=== PATIENT | male | born 1935 | race Caucasian/White ===

== ENCOUNTER 2016-06-09 19:21 | Inpatient (IN) | payer BC ==
--- NOTE | ~2016-06-09 | DS ---
Discharge Summary [facility] [address] [place]. [address] NAME: MAIA HERNANDEZ : 37 STATUS : ADM IN [facility]#: [id number] AGE: 81 ADM/REG DATE : 06/09/16 MR#: [id number] REPORT SERV DATE: 06/14/16 DICTATED BY: JUAN ALCOCER DATE: 06/13/16 REPORT STATUS : Draft TRANSCRIBED BY: MODL DATE: 06/13/16 ADMISSION DATE: 06/09/2016 DISCHARGE DATE: REASON FOR ADMISSION: This is a 81-year-old male who presented with progressive weight loss, increasing confusion, and weakness. The patient apparently had stopped using his diabetes medication about three months ago and then began to lose weight as well. Since February 2016, he has been completely noncompliant with diabetes medication or monitoring and has lost about 50 pounds gradually over that period of time. He describes decreased appetite, but no nausea or vomiting and has had intermittent diarrhea chronically and not daily. The patient's family was concerned about his increasing confusion and weakness over the last six days and in a recurrent falls prior to admission. DISCHARGE DIAGNOSES: 1. Uncontrolled diabetes with A1c of 13.4%. 2. Urinary tract infection. 3. Recurrent falls and unsteady gait. 4. History of traumatic brain injury. 5. Late effects of cerebrovascular accident. 6. Hypothyroid, new diagnosis, started on Synthroid. 7. Status post acute kidney injury. HOSPITAL COURSE: 1. Confusion and weakness. The confusion has cleared since he has been here at the hospital. He did appear to have a light UTI and was started initially on IV Rocephin and has been converted to oral amoxicillin. His urine culture would grow out 100,000 of strep group B. His white blood cell count on admission was actually within normal limits at 7.1. I suspect that a lot of his confusion was possibly due to his uncontrolled diabetes. His weakness and unsteady gait has persisted. He was having falls at home. PT evaluation has recommended inpatient rehab. The patient is being evaluated for [facility]. 2. Uncontrolled diabetes. The patient has been found to have an A1c of 13.4%. Here at the hospital, we have started him on a new diabetic regimen placing him on Levemir 25 units q.h.s. and NovoLog 8 units subcu before meals t.i.d. and sliding scale insulin level 2 as well as metformin 500 mg p.o. b.i.d., this has worked well for the patient. Over the last 24 hours, his blood sugars have been ranging from 105 to 217. I plan to continue this regimen moving forward. DISCHARGE MEDICATIONS: 1. Januvia 100 mg p.o. daily. 2. Amoxicillin 500 mg p.o. b.i.d. x3 more days. 3. Glucophage 500 mg p.o. b.i.d. 4. Levemir 25 units subcu at bedtime. 5. MiraLAX powder one packet p.o. daily. 6. NovoLog 8 units before meals t.i.d. 7. Sliding scale insulin level 2. Discharge Summary [address] [address] NAME: MAIA HERNANDEZ : 37 STATUS : ADM IN [facility]#: [id number] AGE: 81 ADM/REG DATE : 06/09/16 MR#: [id number] REPORT SERV DATE: 06/14/16 DICTATED BY: JUAN ALCOCER DATE: 06/13/16 REPORT STATUS : Draft TRANSCRIBED BY: JORGITO DATE: 06/13/16 8. Lisinopril 5 mg p.o. daily. 9. Synthroid 25 mcg p.o. daily. DISCHARGE CONDITION: Stable. PLAN: The patient being evaluated for [facility] for rehab. Insurance has been submitted information to insurance and that is pending. Hopefully, approval will be reached tomorrow and the patient can discharge to [facility]. All discharge paperwork has been signed and discharge orders has been filled out. The patient should be able to discharge in the morning if approval is received. FREDDY/URBANOL Juan Alcocer APN / [id number] CC: Geo Gonzalez M.D.
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
--- NOTE | ~2016-06-09 | DS ---
Discharge Summary [place] [address] [place]. [address] NAME: MAIA LIANG : 39 STATUS : DIS IN PAT#: [id number] AGE: 81 ADM/REG DATE : 06/09/16 MR#: [id number] REPORT SERV DATE: 06/16/16 DICTATED BY: KATE ERAZO DATE: 06/16/16 REPORT STATUS : Draft TRANSCRIBED BY: JORGITO DATE: 06/16/16 ADMISSION DATE: 06/09/2016 DISCHARGE DATE: 06/16/2016 REASON FOR ADMISSION: Increasing confusion and weakness. HISTORY OF PRESENT ILLNESS: Please refer to Dr. Glasgow's history and physical dated 06/09/2016 for complete details regarding the patient's admission. In brief, the patient was admitted to the Hospitalist Service for management of his uncontrolled diabetes. HOSPITAL COURSE: From admission to 06/14/2016, please refer to Juan Linares's discharge dictation and then please refer to my discharge dictation also dated 06/14/2016. The patient was initially planned to be discharged to [facility] several days ago; however, his insurance had denied acute inpatient rehab and we had to re-choice him, which had delayed discharge for several days. He had been re-choiced to go to [facility] and it took some more time to get insurance approval and then to have a bed availability. I assumed care of this patient on 06/14/2016. He has been stable since then. His sugars have been well controlled on the current regimen. He will be discharged today in a stable condition. DISCHARGE DIAGNOSES: Metabolic encephalopathy secondary to urinary tract infection, now resolved; uncontrolled diabetes with A1c of 13.4%, on insulin and oral agents; history of recurrent falls; morbid obesity; late affects of cerebrovascular accident; acute kidney injury, now resolved; and obstructive sleep apnea, on CPAP. DISCHARGE MEDICATIONS: Include aspirin 81 mg once a day, alogliptin 25 mg daily, amoxicillin 500 mg twice a day for two more days, Synthroid 25 mcg before breakfast, lisinopril 5 mg daily, metformin 500 mg twice a day, and Levemir 25 units at bedtime. This is Dr. Kate Erazo spending over 30 minutes discharge planning and coordination of care of Mr. Liang. COLIN/JORGITO Kate Erazo MD / [id number] CC: Kate Erazo MD
--- NOTE | ~2016-06-09 | DS ---
Discharge Summary [place] [address] [place]. [address] NAME: MAIA HERNANDEZ : 39 STATUS : ADM IN [facility]#: [id number] AGE: 81 ADM/REG DATE : 06/09/16 MR#: [id number] REPORT SERV DATE: 06/14/16 DICTATED BY: KATE EARZO DATE: 06/14/16 REPORT STATUS : Draft TRANSCRIBED BY: MODL DATE: 06/14/16 ADMISSION DATE: 06/09/2016 DISCHARGE DATE: 06/14/2016 REASON FOR ADMISSION: Uncontrolled diabetes, metabolic encephalopathy, and weakness. HISTORY OF PRESENT ILLNESS: Please refer Dr. Glasgow's history and physical dated 06/10 for complete details regarding the patient's admission. In brief, the patient was admitted to the Hospitalist Service for uncontrolled and untreated diabetes, recurrent falls, and UTI with encephalopathy. HOSPITAL COURSE: Please refer to Mr. Hunter Linares's discharge summary for complete hospital course. In brief, the patient's metabolic encephalopathy had resolved, that appears he had a urinary tract infection secondary to group B Strep that was initially started on IV Rocephin and switched to oral amoxicillin. The patient apparently had run out of his diabetes medicines. He was noted to have an A1c of 13.4%. His CBGs have been decently controlled on a new regimen of Levemir 25 units at bedtime and NovoLog 8 units subcu before meals three times a day. I assumed care of this patient with Mr. Hunter Linares on the . He has had multiple recurrent falls and Physical Therapy had evaluated him and recommended rehab. We are currently awaiting insurance approval for the patient to be connected to [facility]. Once we have insurance approval, which we are hoping will be today, he will be discharged in a stable condition. DISCHARGE DIAGNOSES: Metabolic encephalopathy secondary to urinary tract infection, now resolved, uncontrolled diabetes with an A1c of 13.4%, on an insulin, history of recurrent falls, morbid obesity, late effects of cerebrovascular accident status post acute kidney injury, now resolved, and obstructive sleep apnea, on continuous positive airway pressure. DISCHARGE MEDICATIONS: Januvia 100 mg daily, amoxicillin 500 mg twice a day for three more days, Glucophage 500 mg twice a day, Levemir 25 units at bedtime, MiraLAX daily, NovoLog 8 units before meals, lisinopril 5 mg daily, Synthroid 25 mcg daily. Spending over 30 minutes in discharge planning and coordination of care of Mr. Valerio COLIN/JORGITO Kate Erazo MD / [id number] CC: Candi Das M.D.
[~2016-06-09 19:21] MED LIST: BIAXIN5 PO; LEVOTHYROXIN200 MCG PO; SYNTHROID200 MCG PO; ZOCOR40 PO
[2016-06-09 19:23] LABS: BASOPHILS 0.3 %; BASOPHILS ABSOLUTE 0.02 10/3/uL (0.0-0.16); EOSINOPHILS 1.7 %; EOSINOPHILS ABSOLUTE 0.12 10/3/uL (0.0-0.53); IMMATURE GRANULOCYTES 0.1 %; IMMATURE GRANULOCYTES ABSOLUTE 0.01 10/3/uL (0.0-0.11); LYMPHOCYTES 31.3 %; LYMPHOCYTES ABSOLUTE 2.23 10/3/uL (0.67-4.30); MEAN CORPUS HGB CONC 33.7 g/dL (32.0-36.0); MEAN CORPUSCULAR HEMOGLOB 30.1 pg (26.0-34.0); MEAN CORPUSCULAR VOLUME 89.2 fL (80-100); MEAN PLATELET VOLUME 11.8 fL (9.2-13.0); MONOCYTES 8.8 %; MONOCYTES ABSOLUTE 0.63 10/3/uL (0.21-1.20); NEUTROPHILS 57.8 %; NEUTROPHILS ABSOLUTE 4.11 10/3/uL (2.02-8.40); PLATELET COUNT 204 10/3/uL (150-400); RED CELL COUNT 4.65 10/6/uL (4.7-6.1); WHITE BLOOD CELLS 7.1 10/3/uL (4.5-10.5)
[2016-06-09 19:25] LABS: HEMATOCRIT 41.5 % (40.0-51.0); MANUAL DIFF NO %
[2016-06-09 19:32] LABS: PROTIME (NOT ORD) 12.9 SEC (12.0-14.5)
[2016-06-09 19:40] LABS: ALBUMIN 3.5 G/DL (3.5-5.0); ALKALINE PHOSPHATASE 92 U/L (45-117); BUN (BLOOD UREA NITROGEN) 19 MG/DL (6-23); CHEST PAIN PROFILE TAT 0 Hrs 23 Mins; CHLORIDE, SERUM 97 MMOL/L (96-112); CO2 (CARBON DIOXIDE) 26 MMOL/L (24-34); CREATININE 1.27 MG/DL (0.70-1.30); GFR AFRICAN AMERICAN 62 ML/MIN (>=60); GFR NON AFRICAN AMERICAN 53 ML/MIN (>=60); GLUCOSE, SERUM 342 MG/DL (60-99); SGOT(AST) 14 U/L (5-40); SGPT(ALT) 16 U/L (5-65); SODIUM, SERUM 135 MMOL/L (135-148); TOTAL BILIRUBIN 0.4 MG/DL (0-1.2); TOTAL PROTEIN 7.5 G/DL (6.0-8.5); TROPONIN I <0.02 NG/ML (<0.05)
[2016-06-09 19:44] LABS: CALCIUM, SERUM 8.3 MG/DL (8.5-10.4); DIRECT BILIRUBIN < 0.1 MG/DL (0.0-0.4); INDIRECT BILIRUBIN(NOT ORDER) 0.3 MG/DL (0.1-0.9); POTASSIUM, SERUM 3.9 MMOL/L (3.5-5.3)
[2016-06-09 20:02] LABS: ASCORBIC ACID (UR NOT ORDER) NEG (NEG); BILIRUBIN, URINE NEGATIVE (NEG); ER URINALYSIS TAT 0 Hrs 12 Mins; KETONE, URINE 20 MG/DL (NEG); LEUKOCYTE ESTERASE(NOT OR LARGE (NEG); NITRITE (URINE) NEG (NEG); WBC (NOT ORDERED) (RFLEX) 12 (0-5)
[2016-06-10 04:26] LABS: BASOPHILS 0.3 %; BASOPHILS ABSOLUTE 0.02 10/3/uL (0.0-0.16); EOSINOPHILS 2.5 %; EOSINOPHILS ABSOLUTE 0.16 10/3/uL (0.0-0.53); HEMATOCRIT 38.1 % (40.0-51.0); HEMOGLOBIN 13.4 g/dL (13.6-17.8); IMMATURE GRANULOCYTES 0.2 %; IMMATURE GRANULOCYTES ABSOLUTE 0.01 10/3/uL (0.0-0.11); LYMPHOCYTES 40.3 %; LYMPHOCYTES ABSOLUTE 2.54 10/3/uL (0.67-4.30); MEAN CORPUS HGB CONC 35.2 g/dL (32.0-36.0); MEAN CORPUSCULAR HEMOGLOB 30.9 pg (26.0-34.0); MEAN PLATELET VOLUME 11.8 fL (9.2-13.0); MONOCYTES 9.8 %; MONOCYTES ABSOLUTE 0.62 10/3/uL (0.21-1.20); NEUTROPHILS 46.9 %; NEUTROPHILS ABSOLUTE 2.95 10/3/uL (2.02-8.40); PLATELET COUNT 185 10/3/uL (150-400); RBC DISTRIBUTION WIDTH 12.8 % (12.0-16.0); RED CELL COUNT 4.33 10/6/uL (4.7-6.1); WHITE BLOOD CELLS 6.3 10/3/uL (4.5-10.5)
[2016-06-10 04:29] LABS: MANUAL DIFF NO %
[2016-06-10 04:50] LABS: A/G RATIO 0.7 (0.7-1.9); ALBUMIN 2.9 G/DL (3.5-5.0); CALCIUM, SERUM 8.4 MG/DL (8.5-10.4); CHLORIDE, SERUM 103 MMOL/L (96-112); CO2 (CARBON DIOXIDE) 29 MMOL/L (24-34); CREATININE 0.95 MG/DL (0.70-1.30); GFR AFRICAN AMERICAN 88 ML/MIN (>=60); GFR NON AFRICAN AMERICAN 76 ML/MIN (>=60); GLOBULIN 3.9 G/DL (2.5-4.1); POTASSIUM, SERUM 4.3 MMOL/L (3.5-5.3); SGOT(AST) 11 U/L (5-40); SGPT(ALT) 16 U/L (5-65); SODIUM, SERUM 139 MMOL/L (135-148); TOTAL BILIRUBIN 0.4 MG/DL (0-1.2); TOTAL PROTEIN 6.8 G/DL (6.0-8.5)
[2016-06-10 04:51] LABS: ALKALINE PHOSPHATASE 80 U/L (45-117); BUN (BLOOD UREA NITROGEN) 13 MG/DL (6-23); GLUCOSE, SERUM 180 MG/DL (60-99)
[2016-06-10 04:53] LABS: PARTIAL THROMBO TIME 23.2 SEC (22.5-37.2); PROTIME (NOT ORD) 13.3 SEC (12.0-14.5)
[2016-06-11 04:10] LABS: BUN (BLOOD UREA NITROGEN) 13 MG/DL (6-23); CALCIUM, SERUM 8.7 MG/DL (8.5-10.4); CHLORIDE, SERUM 101 MMOL/L (96-112); CO2 (CARBON DIOXIDE) 28 MMOL/L (24-34); CREATININE 0.91 MG/DL (0.70-1.30); FREE T4 0.79 NG/DL (0.76-1.46); GFR AFRICAN AMERICAN 93 ML/MIN (>=60); GFR NON AFRICAN AMERICAN 80 ML/MIN (>=60); GLUCOSE, SERUM 207 MG/DL (60-99); SODIUM, SERUM 139 MMOL/L (135-148)
[2016-06-11 04:15] LABS: POTASSIUM, SERUM 4.6 MMOL/L (3.5-5.3)
[2016-06-12 04:55] LABS: BUN (BLOOD UREA NITROGEN) 16 MG/DL (6-23); CALCIUM, SERUM 8.7 MG/DL (8.5-10.4); CHLORIDE, SERUM 100 MMOL/L (96-112); CO2 (CARBON DIOXIDE) 28 MMOL/L (24-34); CREATININE 0.84 MG/DL (0.70-1.30); GFR AFRICAN AMERICAN 97 ML/MIN (>=60); GFR NON AFRICAN AMERICAN 83 ML/MIN (>=60); GLUCOSE, SERUM 218 MG/DL (60-99); POTASSIUM, SERUM 4.5 MMOL/L (3.5-5.3); SODIUM, SERUM 138 MMOL/L (135-148)
== END 2016-06-16 13:28 | DRG 637 ==
LOC: ER 19:21 → CDU1 22:54 → CDU2 23:27 → 7NO 06-13 18:02
PROVIDERS: Emergency Medicine; Internal Medicine; Nurse Practitioner Gerontology
DX: E11.65 Type 2 diabetes mellitus with hyperglycemia (principal); G93.41 Metabolic encephalopathy; N17.9 Acute kidney failure, unspecified; N39.0 Urinary tract infection, site not specified; E66.01 Morbid (severe) obesity due to excess calories; Z79.4 Long term (current) use of insulin; Z91.81 History of falling; Z86.73 Personal history of transient ischemic attack (TIA), and cerebral infarction without residual deficits; G47.33 Obstructive sleep apnea (adult) (pediatric); Z68.38 Body mass index [BMI] 38.0-38.9, adult
CPT/HCPCS: 70450; 71010; 72125; 73560-50; 73560-LT; 80048; 80053; 80076; 81001; 82150; 82962; 83036; 83690; 83735; 84134; 84439; 84443; 84484; 85025; 85610; 85730; 87086; 93005; 97110-GP; 97116-GP; 97162-GP; 97165-GO; 99285; A9270-GY; G0378; G8978-CK-GP; G8979-CJ-GP

== ENCOUNTER 2016-08-12 10:29 | Emergency (ER) | payer BC ==
[2016-08-12 12:30] LABS: BASOPHILS 0.2 %; BASOPHILS ABSOLUTE 0.02 10/3/uL (0.0-0.16); EOSINOPHILS 1.3 %; EOSINOPHILS ABSOLUTE 0.14 10/3/uL (0.0-0.53); HEMATOCRIT 36.6 % (40.0-51.0); HEMOGLOBIN 12.9 g/dL (13.6-17.8); IMMATURE GRANULOCYTES 0.3 %; IMMATURE GRANULOCYTES ABSOLUTE 0.03 10/3/uL (0.0-0.11); LYMPHOCYTES 21.9 %; MEAN CORPUS HGB CONC 35.2 g/dL (32.0-36.0); MEAN CORPUSCULAR HEMOGLOB 30.4 pg (26.0-34.0); MEAN CORPUSCULAR VOLUME 86.3 fL (80-100); MEAN PLATELET VOLUME 10.5 fL (9.2-13.0); MONOCYTES 8.7 %; MONOCYTES ABSOLUTE 0.95 10/3/uL (0.21-1.20); NEUTROPHILS 67.6 %; NEUTROPHILS ABSOLUTE 7.44 10/3/uL (2.02-8.40); PLATELET COUNT 220 10/3/uL (150-400); RBC DISTRIBUTION WIDTH 12.9 % (12.0-16.0); RED CELL COUNT 4.24 10/6/uL (4.7-6.1)
[2016-08-12 12:31] LABS: ER CBC TAT 0 Hrs 07 Mins; MANUAL DIFF NO %
[2016-08-12 12:35] LABS: ASCORBIC ACID (UR NOT ORDER) NEG (NEG); BILIRUBIN, URINE NEGATIVE (NEG); ER URINALYSIS TAT 0 Hrs 11 Mins; KETONE, URINE NEGATIVE (NEG); LEUKOCYTE ESTERASE(NOT OR SMALL (NEG); NITRITE (URINE) NEG (NEG); WBC (NOT ORDERED) (RFLEX) 2 (0-5)
[2016-08-12 12:48] LABS: A/G RATIO 0.9 (0.7-1.9); ALBUMIN 3.2 G/DL (3.5-5.0); BUN (BLOOD UREA NITROGEN) 13 MG/DL (6-23); CALCIUM, SERUM 8.5 MG/DL (8.5-10.4); CHLORIDE, SERUM 97 MMOL/L (96-112); CO2 (CARBON DIOXIDE) 29 MMOL/L (24-34); CREATININE 0.89 MG/DL (0.70-1.30); GFR AFRICAN AMERICAN 94 ML/MIN (>=60); GFR NON AFRICAN AMERICAN 81 ML/MIN (>=60); GLOBULIN 3.6 G/DL (2.5-4.1); GLUCOSE, SERUM 123 MG/DL (60-99); SGOT(AST) 16 U/L (5-40); SGPT(ALT) 13 U/L (5-65); TOTAL BILIRUBIN 0.8 MG/DL (0-1.2); TOTAL PROTEIN 6.8 G/DL (6.0-8.5)
[2016-08-12 12:49] LABS: ALKALINE PHOSPHATASE 63 U/L (45-117); SODIUM, SERUM 130 MMOL/L (135-148)
== END 2016-08-12 16:20 | disposition home or self-care (01) ==
LOC: ER 10:29
PROVIDERS: Physician Assistant
DX: M62.81 Muscle weakness (generalized) (principal); E87.1 Hypo-osmolality and hyponatremia; R30.0 Dysuria; E10.9 Type 1 diabetes mellitus without complications
CPT/HCPCS: 73552-LT; 73610-LT; 80053; 81001; 83690; 85025; 87077; 87086; 87186; 93005; 99285

== ENCOUNTER 2016-08-23 20:43 | Inpatient (IN) | payer BC ==
--- NOTE | ~2016-08-23 | DS ---
Discharge Summary [facility] [address] [facility] [place]. [address] NAME: MAIA HERNANDEZ : 39 STATUS : DIS IN PAT#: [id number] AGE: 81 ADM/REG DATE : 08/24/16 MR#: [id number] REPORT SERV DATE: 10/17/16 DICTATED BY: Bindu ANNA DATE: 10/15/16 REPORT STATUS : Draft TRANSCRIBED BY: MODL DATE: 10/15/16 ADMISSION DATE: 08/24/2016 DISCHARGE DATE: 08/30/2016 DISCHARGE DIAGNOSES: 1. 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 Lab work pending as of this dictation. 2. 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 3. Hypothyroidism, most recently TSH 7.290, on Synthroid replacement therapy. 4. Diabetes type 2, most recent hemoglobin A1c was 6.9. 5. Vitamin B12 deficiency. 6. Baseline chronic dementia. 7. History of traumatic brain injury. 8. Obstructive sleep apnea, on CPAP therapy. 9. Constipation. DISCHARGE MEDICATIONS: Level 2 NovoLog sliding scale a.c. and at bedtime, Synthroid 100 mcg p.o. daily, Levemir 10 units twice a day, Tylenol 650 mg every four hours p.r.n., metformin 500 mg twice a day, hypoglycemia protocol, Zofran 4 mg every four hours p.r.n. for nausea, Januvia 100 mg daily, MiraLAX 17 g p.o. daily, Dulcolax suppository one [place] p.r.n. for no bowel movement in 24 hours. HISTORY OF PRESENT ILLNESS: This is a 81-year-old gentleman, who presented with weakness and inability to walk. Please see initial H and P of Dr. Clarence Garcia. The patient was admitted to the Hospitalist Service for further evaluation and treatment. CONSULTANTS DURING THIS ADMISSION: Included Neurology, Dr. Marley, and Nephrology, Dr. Shaikh. PROCEDURES AND IMAGING DURING THIS ADMISSION: Included a lumbar puncture ordered by Neurology showing mild amount of protein. HOSPITAL COURSE: The patient was seen by neurologist, Dr. Denver Marley, who had some concern for Guillain-[place] syndrome given the increased CSF protein and ascending weakness. She initiated IVIG therapy, supportive care, and physical therapy and occupational therapy. The patient did have a mild decrease in his sodium, which started to improve also with hydration. His TSH was noted to be elevated to 8.630, so his Synthroid dosage was increased with instructions to recheck his TSH in four to six weeks, and he continued on his IVIG therapy to complete a 5-day course. The patient was doing reasonably well, but did have a rather precipitous drop in his sodium again that happened on 08/28/2016 with dropping from 130 to 122. He actually spent one day in the care of critical care, Dr. Chelsea De La Garza, on that day with consultation then to [facility] who initiated medication with Samsca for resolution of his sodium, and this did increase his sodium slowly to 125 and then to 130. He completed his IVIG therapy. He was seen and evaluated for rehab at [facility] and was felt safe for discharge there on 08/30/2016 with the above medication regimen. Please note, greater than 30 minutes was spent on this dictation for medication teaching, Discharge Summary [address] [address] NAME: MAIA HERNANDEZ : 39 STATUS : DIS IN PAT#: [id number] AGE: 81 ADM/REG DATE : 08/24/16 MR#: [id number] REPORT SERV DATE: 10/17/16 DICTATED BY: Bindu ANNA DATE: 10/15/16 REPORT STATUS : Draft TRANSCRIBED BY: JORGITO DATE: 10/15/16 family meeting, and followup planning. Collaborative physician is Dr. Thiago Anna. [facility]/JORGITO Sanchez Blank, GUS Bindu Anna M.D. / [id number] CC: Geo Thomason D.O.
--- NOTE | ~2016-08-23 | CN ---
Consultation Report [facility] [address] [place]. [address] NAME: MAIA HERNANDEZ : 37 STATUS : ADM IN PAT#: [id number] AGE: 81 ADM/REG DATE : 08/24/16 MR#: [id number] REPORT SERV DATE: 08/24/16 DICTATED BY: DATE: REPORT STATUS : Draft TRANSCRIBED BY: MODL DATE: 08/24/16 NEUROLOGY CONSULTATION DATE OF CONSULTATION: 08/24/2016 REASON FOR CONSULT: Gait abnormality. HISTORY OF PRESENT ILLNESS: This is a 81-year-old male, previously admitted on May 2016, secondary to encephalopathy, attributed to urinary tract infection, the patient's mental status subsequently improved, and patient was discharged to rehab. However, the patient while at rehab was noted to have progressive weakness. With the patient's family reports the patient initially was noted to have left lower extremity pain and weakness and left knee discomfort for which the patient's orthopedist evaluated the patient and found no etiology for the patient's pain and discomfort. The patient subsequently was noted to have worsening gait. With the patient noted to have now bilateral lower extremity weakness, have difficulty standing up, and difficulty transferring. With the patient's reports weakness in bilateral upper extremity as well. As the patient was noted to have increasing difficulties with pushing himself off the bed. The patient's otherwise denies any dysarthria, denies any aphasia, and denies any worsening mental status. However, the patient was noted to have reportedly difficulty with appetite with significant weight loss over the past several months. In addition, the patient was also noted to have significant diarrhea over the past several months, but no difficulties with bladder control. The patient denies any numbness and denies any tingling sensation. No similar events in the past. The patient does have recent adjustment of thyroid medication, otherwise no other medication adjustment was reported. The patient does have outpatient MRI of the C-spine, T- spine, as well as L-spine ordered by Orthopedics, with reportedly no significant abnormality noted. No other significant trauma was reported. 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 PAST MEDICAL HISTORY: With the patient has the past medical history significant for previous uncontrolled insulin dependent diabetes type 2, hypothyroidism, history of traumatic brain injury with intracerebral hemorrhage, as well as history of stroke in the past, obstructive sleep apnea, on CPAP, as well as benign prosthetic hypertrophy, the patient was noted to have baseline disorientation which the patient's reports has been stable ever since the patient's previous traumatic brain injury. ALLERGIES: THE PATIENT WAS NOTED TO HAVE NO KNOWN DRUG ALLERGIES. HOME MEDICATIONS: Levothyroxine, Levemir, metformin, as well as Januvia. SOCIAL HISTORY: Denies tobacco, alcohol, or recreational drug usage. FAMILY HISTORY: Significant for Alzheimer's dementia and cancer. Consultation Report [place] [id number] [facility] [place]. [address] NAME: MAIA HERNANDEZ : 37 STATUS : ADM IN [facility]#: [id number] AGE: 81 ADM/REG DATE : 08/24/16 MR#: [id number] REPORT SERV DATE: 08/24/16 DICTATED BY: DATE: REPORT STATUS : Draft TRANSCRIBED BY: MODYolie DATE: 08/24/16 REVIEW OF SYSTEMS: Again, review of systems negative except for those mentioned in the HPI. PHYSICAL EXAMINATION: VITAL SIGNS: The patient overnight was noted to have vital signs with T-max of 98.9, heart rate of 80 to 99, respirations of 16 to 18, and blood pressure of 123 to 157/74 to 83. GENERAL: The patient is well-developed, well-nourished, in no acute distress. CARDIOVASCULAR: Regular rate and rhythm. No carotid bruits were otherwise auscultated. PULMONARY: Clear to auscultation bilaterally. NEUROLOGIC: Generally, the patient is alert, oriented to the person, knows that he is in the hospital, but disoriented regarding city, and the patient was noted disoriented regarding the year, as well as month, which according to patient's was consistent with the patient's baseline mental status. The patient is able to follow simple and two-step commands and was noted to have mild dysarthria, no significant aphasia was noted. The patient was noted to have difficulty with registration and recall. Cranial nerves 2 through 12. Pupils equal, round, and reactive to light. Horizontal eye movement was noted to be intact. No nystagmus was noted. Intact blink to threat response was noted. He was noted to have symmetrical facial expression. Midline tongue. Normal palatal movement. Mild decreased hearing in bilateral ears. Reports symmetrical facial sensation. The patient demonstrated 5/5 bilateral upper extremity strength with normal muscle, bulk, and tone. No tremor was noted. The patient demonstrated 2/5 bilateral lower extremity strength. With the patient have difficulties raising bilateral lower extremity against gravity. The patient was noted to be areflexic in bilateral upper and lower extremity at the time of evaluation. Plantar reflex was unable to be obtained. Normal [id number]-ec-tzks examination without ataxia. Gait was not evaluated, secondary to significant weakness. Symmetrical sensation in bilateral upper extremities. Diminished sensation in bilateral lower extremities, roughly mentioned area. With the patient's sensation seems to be better in the right lower extremity compared to the left. The patient demonstrated no significant resting tremors. No asterixis or myoclonus was noted at the time of evaluation. LABORATORY DATA: Demonstrated white blood cell count of 8.9, hemoglobin of 12.9, hematocrit of 36.0, platelet count of 255. Chemistry panel, the patient was noted to have sodium 127, potassium 4.4, chloride of 92, bicarb 28, BUN of 14, creatinine 0.80, glucose of 106, calcium of 8.6, magnesium 1.5. Folate of 19.8, vitamin B12 of 166. Serum TSH of 7.44, free T4 1.43. Hemoglobin A1c of 6.9. Urinalysis demonstrated negative leukocyte esterase, negative for nitrite. With the patient noted to have CT scan of the brain demonstrating no acute process. IMPRESSION: Progressive weakness in bilateral lower extremity with the patient noted to have 2/5 bilateral lower extremity weakness and areflexic. We will opt low outpatient MRI scan for review. We will request lumbar puncture by Radiology, as the patient was noted to be areflexic. We will also obtain laboratory study and have respiratory evaluation for NIF, as well as vital capacity q.shift. 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 [place] [address] NAME: MAIA HERNANDEZ : 37 STATUS : ADM IN [facility]#: [id number] AGE: 81 ADM/REG DATE : 08/24/16 MR#: [id number] REPORT SERV DATE: 08/24/16 DICTATED BY: DATE: REPORT STATUS : Draft TRANSCRIBED BY: MODL DATE: 08/24/16 have recently improved control of diabetes, versus possible multifactorial etiology. We are recommending PT/OT for evaluation. RECOMMENDATIONS: 1. We will follow outpatient MRI studies. 2. Radiology for lumbar puncture. 3. CSF for protein, glucose, cell count with differential, as well as HSV, PCR, cryptococcal antigen, Gram stain, bacterial culture, myelin basic protein and oligoclonal band. 4. Ammonia level with morning labs. 5. Vitamin B12 supplementation. 6. PT/OT. 7. Respiratory on NIF and vital capacity check q.shift. [facility]/MODL Denver Marley MD / [id number] CC: MD Juan Jose Rankin D.O.
--- NOTE | ~2016-08-23 | HP ---
History And Physical [place] [address] [place]. [address] NAME: MAIA LIANG : 37 STATUS : ADM IN [facility]#: [id number] AGE: 81 ADM/REG DATE : 08/24/16 MR#: [id number] REPORT SERV DATE: 08/24/16 DICTATED BY: MARY LIRA DATE: 08/24/16 REPORT STATUS : Draft TRANSCRIBED BY: MODL DATE: 08/24/16 DATE OF ADMISSION: 08/24/2016 POINT OF ENTRY: [facility] Emergency Department Primary care physician is Dr. Juan Jose Hyatt. CHIEF COMPLAINT: Weakness, cannot walk. HISTORY OF PRESENT ILLNESS: Mr. Liang is a 81-year-old gentleman with history of poorly controlled insulin-dependent diabetes mellitus type 2, hypothyroidism, history of traumatic brain injury with resulting intracerebral hemorrhage in the 1970s, as well as BPH, who presents to the emergency department today with reports of progressive worsening weakness and now inability to walk. The patient was admitted to the Hospitalist Service in May 2016 with encephalopathy, uncontrolled diabetes, as well as underlying urinary tract infection. The patient was discharged to [facility] [place] after his stay here. states that despite stay at [place], he returned not much stronger than when he was admitted to the hospital. At that time, he required a walker for ambulation. Since then, he has progressively gotten weaker and weaker. He is now unable to lift his legs up without assistance. His ability to use a walker is now severely compromised as he is now starting to have upper extremity weakness as well. reports that he has undergone some initial evaluation for his lower extremity weakness including seeing his orthopedic surgeon for reports of knee pain as well as seeing Dr. Tam Schultz of Orthopedic Spine Surgery and underwent reported MRIs of the lower back that were reportedly unremarkable. The patient is actually scheduled to have an EMG tomorrow for further evaluation of lower extremity weakness complaints. REVIEW OF SYSTEMS: They otherwise deny any fevers, night sweats, chills, chest pain, palpitations, shortness of breath, abdominal pain, nausea, vomiting, constipation, melena, hematochezia, or hematemesis. states that he has had an extensive weight loss due to poor oral intake and poor appetite as well as troubles with chronic diarrhea. Comprehensive system otherwise negative unless listed in history present illness. IMAGING: Initial evaluation in the emergency department, CT scan of the brain that shows old postsurgical changes as well as encephalomalacia, otherwise no acute intracranial abnormality. The labs otherwise unremarkable except for a vitamin B12 of 166. The patient was subsequently admitted to the Hospitalist Service for further evaluation and management. PREVIOUS MEDICAL HISTORY: 1. Uncontrolled insulin-dependent diabetes mellitus type 2. History And Physical [address] [address] NAME: MAIA LIANG : 37 STATUS : ADM IN [facility]#: [id number] AGE: 81 ADM/REG DATE : 08/24/16 MR#: [id number] REPORT SERV DATE: 08/24/16 DICTATED BY: MARY LIRA DATE: 08/24/16 REPORT STATUS : Draft TRANSCRIBED BY: JORGITO DATE: 08/24/16 2. Hypothyroidism. 3. History of traumatic brain injury with intracerebral hemorrhage in 1970. 4. Obstructive sleep apnea, on CPAP therapy. 5. BPH. 6. History of prior cerebrovascular accident. SURGICAL HISTORY: 1. Left temporal craniotomy. 2. Bilateral total knee. 3. Cholecystectomy. 4. TURP. 5. Umbilical hernia repair. 6. Left arm surgery. ALLERGIES: NO KNOWN DRUG ALLERGIES. HOME MEDICATIONS: 1. Levemir 25 units q.h.s. 2. Levothyroxine 75 mcg daily. 3. Metformin 500 mg b.i.d. 4. Januvia 100 mg q.a.m. SOCIAL HISTORY: Denies any tobacco, alcohol, or illicits. FAMILY MEDICAL HISTORY: Mother with Alzheimer's dementia. Father cancer, type unknown. Siblings are otherwise healthy. LABS AND IMAGIN. White count is 8.9, hemoglobin is 12.9, hematocrit is 36.0, platelet count is 255. 2. Sodium is 127, potassium 4.5, chloride 92, carbon dioxide 28, BUN 14, creatinine 0.80, glucose is 106, calcium is 8.6, protein is 6.6, albumin is 3.1, bilirubin is 0.5, ALT is 13, AST 12, alkaline phosphatase is 67. 3. CPK is 55. 4. TSH 8.6, free T4 of 1.41. 5. Vitamin B12 level is 166. 6. Folate level is 19.8. 7. CT scan of the brain shows stable postsurgical changes from left temporal craniotomy with stable underlying moderate large area of left temporal lobe and inferior adjacent parietal lobe encephalomalacia, stable moderate sized old CVA superior left frontal lobe, stable underlying moderate diffuse cerebral involutional changes. PHYSICAL EXAMINATION: VITAL SIGNS: Temperature is 98.2 degrees Fahrenheit, pulse is 90, respirations 10, saturating 98% on room air, blood pressure is 121/78. GENERAL: The patient is awake, alert, in no acute distress. Resting comfortably in bed. He is a well-developed, well-nourished, elderly male. at bedside. HEENT: Atraumatic and normocephalic. Moist mucous membranes. Pupils equal, round, and History And Physical [address] [address] NAME: MAIA LIANG : 37 STATUS : ADM IN [facility]#: [id number] AGE: 81 ADM/REG DATE : 08/24/16 MR#: [id number] REPORT SERV DATE: 08/24/16 DICTATED BY: MARY LIRA DATE: 08/24/16 REPORT STATUS : Draft TRANSCRIBED BY: JORGITO DATE: 08/24/16 reactive to light and accommodation. Extraocular eye movements intact. No scleral icterus. NECK: No jugular venous distention. No carotid bruits. CARDIAC: Regular rate and rhythm. No murmurs or gallops. Normal S1, S2. LUNGS: Clear to auscultation bilaterally. No wheezes, rhonchi, or crackles. ABDOMEN: Soft, nontender, and nondistended with good bowel sounds. No rebound, guarding, or rigidity. EXTREMITIES: Warm and well perfused. No cyanosis, clubbing, or edema. SKIN: Warm and dry. PSYCH: Affect is appropriate. NEURO: Alert and oriented x3. Cranial nerves II through XII are grossly intact. Speech is normal. Gait not assessed. The patient has a 4/5 strength in bilateral upper extremities. He has 4/5 strength plantar and dorsiflexion, bilateral lower extremities, but approximately 2 to 3 out of 5 strength around the hip flexors and extensors. Sensation is grossly intact all throughout. ASSESSMENT: Mr. 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 Problem list: 1. Ascending weakness. 2. Gait abnormality. 3. Vitamin B12 deficiency. 4. Hyponatremia. 5. Uncontrolled insulin-dependent diabetes mellitus type 2. PLAN: 1. Ascending weakness. Given the patient's reports of ascending weakness, there was some concern for AIDP. The patient also has uncontrolled diabetes as well as new evidence of vitamin B12 deficiency. Therefore, the differential of his weakness is broad and it may be multifactorial. We will check an A1c. Place the patient on vitamin B12 replacement as well as consult Neurology for assistance. 2. Vitamin B12 deficiency. Repleting with daily dose of intramuscular vitamin B12. 3. Hyponatremia. Likely secondary to poor oral intake. Providing some IV fluid hydration. Checking urine lytes as well as serum osms. 4. Hypothyroidism. Checking thyroid function studies. 5. Uncontrolled insulin-dependent diabetes mellitus type 2. Check hemoglobin A1c. Placed on level 2 insulin sliding scale as well as home long-acting insulin. 6. DVT prophylaxis. Lovenox subcu. CODE STATUS: The patient wished to be full code. MARRY/JORGITO History And Physical [address] [address] NAME: MAIA LIANG : 37 STATUS : ADM IN [facility]#: [id number] AGE: 81 ADM/REG DATE : 08/24/16 MR#: [id number] REPORT SERV DATE: 08/24/16 DICTATED BY: MARY LIRA DATE: 08/24/16 REPORT STATUS : Draft TRANSCRIBED BY: MODL DATE: 08/24/16 Mary Lira MD / [id number] CC: MD Juan Jose Rankin D.O.
--- NOTE | ~2016-08-23 | CN ---
Consultation Report [facility] [address] [place]. [address] NAME: MAIA LIANG : 37 STATUS : ADM IN [facility]#: [id number] AGE: 81 ADM/REG DATE : 08/24/16 MR#: [id number] REPORT SERV DATE: 08/29/16 DICTATED BY: BROOKS SHAIKH DATE: 08/29/16 REPORT STATUS : Draft TRANSCRIBED BY: MODL DATE: 08/29/16 CONSULTATION NOTE DATE OF CONSULTATION: 08/29/2016 CONSULTING GROUP: [facility]. 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 HISTORY OF PRESENT ILLNESS: Mr. Liang is a 81-year-old gentleman with a history of type 2 diabetes, hypothyroidism, benign prostatic hypertrophy, and old traumatic brain injury in the , who presented on 08/24/2016 with worsening weakness and inability to walk. He lives with his at home in [place] and was brought by EMS to [facility] for bilateral leg weakness with areflexia. 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 The patient received five doses of IVIG with the last dose being today. According to IMCU RN, weakness and his vital capacity as checked by NIF have all improved some with therapy. who is by the bedside reports that he is still having involuntary shakes of his extremities and his confusion has not improved. Dr. Rankin asked me to see the patient for declining sodium levels since starting IVIG. PAST MEDICAL HISTORY: 1970s, traumatic brain injury and hemorrhage; controlled diabetes; benign prostatic hypertrophy; obstructive sleep apnea, hypothyroidism. FAMILY HISTORY: Mother with Alzheimer's. SOCIAL HISTORY: Lives at home with his . No tobacco or alcohol use. He had a two-week stay at [facility], after a [facility] admission. REVIEW OF SYSTEMS: Positive for leg weakness, malaise, poor appetite, diarrhea. All other review of systems negative at this time. PHYSICAL EXAMINATION: VITAL SIGNS: Temperature 98.0, pulse of 80, blood pressure 110/62, weight 101 kg. Intake 1181, output 1450. GENERAL: Elderly white male, in no acute distress. EYES: Extraocular moves intact. No conjunctivitis. ENT: Red tongue. Moist mucosa. LYMPH: No supraclavicular or cervical lymphadenopathy. SKIN: No rash or lesions. HEART: S1, S2. Regular. No edema. LUNGS: Clear to auscultation anteriorly. No crackles. Consultation Report [place] [address]. [address] NAME: MAIA LIANG : 37 STATUS : ADM IN PAT#: [id number] AGE: 81 ADM/REG DATE : 08/24/16 MR#: [id number] REPORT SERV DATE: 08/29/16 DICTATED BY: BROOKS SHAIKH DATE: 08/29/16 REPORT STATUS : Draft TRANSCRIBED BY: MODL DATE: 08/29/16 ABDOMEN: Soft, nontender. Decreased bowel sounds. EXTREMITIES AND PSYCH: Weakness. No patellar reflexes. Involuntary shakes per . LABORATORY DATA: Chest x-ray shows no acute process. Sodium 124, which has gone down steadily from 133 over the past five days. Potassium 4.3, chloride 92, bicarbonate 26, BUN 14, creatinine 0.7, and glucose 127, calcium 8.3, magnesium 1.5, phosphorus 3.7, albumin 2.6, T bilirubin 0.5, alkaline phosphatase 63. ALT 15, AST 12. Serum osmolality 270, which is low. White count 5.1, hemoglobin 13.3, hematocrit 36.8, and platelets 223. His vitamin B12 level 166, which is low. Hemoglobin A1c 6.9. Ammonia 15. CSF culture is negative. Cryptococcus is negative. Urine osmolality is 290. ASSESSMENT: Mr. 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 Hyponatremia: The patient has slowly progressive sodium drop since admission with euvolemia and a higher than expected urine osmolality of 290. 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 PLAN: Due to his euvolemia and his hypoosmolality, this is true hyponatremia, so I will start Samsca 15 mg p.o. daily for two doses and check sodium levels every eight hours. I will replace his magnesium IV today. Check a urine osmolality and urine sodium today prior to Samsca dose, and check a TSH and free T4 tomorrow morning. He is supposed to be on an 800 mL water restriction. BETTINA/JORGITO Brooks Shaikh M.D. / [id number] CC: Geo Vargas D.O.
[2016-08-23 21:59] LABS: BASOPHILS 0.4 %; BASOPHILS ABSOLUTE 0.04 10/3/uL (0.0-0.16); EOSINOPHILS 1.9 %; EOSINOPHILS ABSOLUTE 0.17 10/3/uL (0.0-0.53); ER CBC TAT 0 Hrs 03 Mins; HEMOGLOBIN 12.9 g/dL (13.6-17.8); IMMATURE GRANULOCYTES 0.3 %; IMMATURE GRANULOCYTES ABSOLUTE 0.03 10/3/uL (0.0-0.11); LYMPHOCYTES 23.1 %; LYMPHOCYTES ABSOLUTE 2.05 10/3/uL (0.67-4.30); MANUAL DIFF NO %; MEAN CORPUS HGB CONC 35.8 g/dL (32.0-36.0); MEAN CORPUSCULAR HEMOGLOB 30.4 pg (26.0-34.0); MEAN CORPUSCULAR VOLUME 84.7 fL (80-100); MONOCYTES 9.7 %; MONOCYTES ABSOLUTE 0.86 10/3/uL (0.21-1.20); NEUTROPHILS 64.6 %; NEUTROPHILS ABSOLUTE 5.74 10/3/uL (2.02-8.40); PLATELET COUNT 255 10/3/uL (150-400); RBC DISTRIBUTION WIDTH 12.7 % (12.0-16.0); RED CELL COUNT 4.25 10/6/uL (4.7-6.1); WHITE BLOOD CELLS 8.9 10/3/uL (4.5-10.5)
[2016-08-23 22:16] LABS: A/G RATIO 0.9 (0.7-1.9); ALBUMIN 3.1 G/DL (3.5-5.0); ALKALINE PHOSPHATASE 67 U/L (45-117); BUN (BLOOD UREA NITROGEN) 14 MG/DL (6-23); CALCIUM, SERUM 8.6 MG/DL (8.5-10.4); CHLORIDE, SERUM 92 MMOL/L (96-112); CO2 (CARBON DIOXIDE) 28 MMOL/L (24-34); GFR AFRICAN AMERICAN 98 ML/MIN (>=60); GFR NON AFRICAN AMERICAN 85 ML/MIN (>=60); GLOBULIN 3.5 G/DL (2.5-4.1); GLUCOSE, SERUM 106 MG/DL (60-99); POTASSIUM, SERUM 4.5 MMOL/L (3.5-5.3); SGOT(AST) 12 U/L (5-40); SGPT(ALT) 13 U/L (5-65); SODIUM, SERUM 127 MMOL/L (135-148); TOTAL BILIRUBIN 0.5 MG/DL (0-1.2); TOTAL PROTEIN 6.6 G/DL (6.0-8.5)
[2016-08-23 22:38] LABS: FREE T4 1.41 NG/DL (0.76-1.46); ULTRASENSITIVE TSH 8.63 MCIU/ML (0.358-3.740)
[2016-08-23 22:39] LABS: FOLATE 19.8 NG/ML (>5.2)
[2016-08-23] MEDS ORDERED: JANUVIA100 MG PO (23:04)
[2016-08-23] MEDS ORDERED: LEVEMFLXPN SC (23:04)
[2016-08-23] MEDS ORDERED: GLUCPH PO (23:04)
[2016-08-23] MEDS ORDERED: SYN075 PO (23:04)
[2016-08-24 01:24] LABS: ASCORBIC ACID (UR NOT ORDER) NEG (NEG); BILIRUBIN, URINE NEGATIVE (NEG); ER URINALYSIS TAT 0 Hrs 12 Mins; KETONE, URINE TRACE MG/DL (NEG); LEUKOCYTE ESTERASE(NOT OR NEG (NEG); NITRITE (URINE) NEG (NEG); WBC (NOT ORDERED) (RFLEX) 1 (0-5)
[2016-08-24 07:58] LABS: FREE T4 1.43 NG/DL (0.76-1.46); PHOSPHORUS, SERUM 2.5 MG/DL (2.5-4.5); ULTRASENSITIVE TSH 7.44 MCIU/ML (0.358-3.740)
[2016-08-24 13:32] LABS: GLYCOHEMOGLOBIN (HbA1c) 6.9 % (4.7-6.1)
[2016-08-24 14:43] LABS: CALCIUM, SERUM 8.2 MG/DL (8.5-10.4); CHLORIDE, SERUM 95 MMOL/L (96-112); CO2 (CARBON DIOXIDE) 27 MMOL/L (24-34); GFR AFRICAN AMERICAN 104 ML/MIN (>=60); GFR NON AFRICAN AMERICAN 90 ML/MIN (>=60); GLUCOSE, SERUM 111 MG/DL (60-99); POTASSIUM, SERUM 4.7 MMOL/L (3.5-5.3); SODIUM, SERUM 128 MMOL/L (135-148)
[2016-08-24 14:45] LABS: BUN (BLOOD UREA NITROGEN) 9 MG/DL (6-23)
[2016-08-25 07:45] LABS: BASOPHILS 0.3 %; BASOPHILS ABSOLUTE 0.03 10/3/uL (0.0-0.16); EOSINOPHILS 1.9 %; EOSINOPHILS ABSOLUTE 0.17 10/3/uL (0.0-0.53); HEMOGLOBIN 14.1 g/dL (13.6-17.8); IMMATURE GRANULOCYTES 0.1 %; IMMATURE GRANULOCYTES ABSOLUTE 0.01 10/3/uL (0.0-0.11); LYMPHOCYTES ABSOLUTE 1.41 10/3/uL (0.67-4.30); MANUAL DIFF NO %; MEAN CORPUS HGB CONC 36.2 g/dL (32.0-36.0); MEAN CORPUSCULAR HEMOGLOB 30.7 pg (26.0-34.0); MEAN CORPUSCULAR VOLUME 84.8 fL (80-100); MONOCYTES 9.9 %; MONOCYTES ABSOLUTE 0.87 10/3/uL (0.21-1.20); NEUTROPHILS 71.8 %; NEUTROPHILS ABSOLUTE 6.33 10/3/uL (2.02-8.40); PLATELET COUNT 268 10/3/uL (150-400); RBC DISTRIBUTION WIDTH 12.6 % (12.0-16.0); WHITE BLOOD CELLS 8.8 10/3/uL (4.5-10.5)
[2016-08-25 08:01] LABS: CALCIUM, SERUM 8.5 MG/DL (8.5-10.4); CHLORIDE, SERUM 98 MMOL/L (96-112); CO2 (CARBON DIOXIDE) 29 MMOL/L (24-34); CREATININE 0.62 MG/DL (0.70-1.30); GFR AFRICAN AMERICAN 109 ML/MIN (>=60); GFR NON AFRICAN AMERICAN 94 ML/MIN (>=60); GLUCOSE, SERUM 107 MG/DL (60-99); SODIUM, SERUM 133 MMOL/L (135-148)
[2016-08-25 08:02] LABS: BUN (BLOOD UREA NITROGEN) 5 MG/DL (6-23)
[2016-08-25 12:23] LABS: CSF APPEARANCE (NOT ORD) CLEAR (CLEAR); CSF COLOR (NOT ORD) COLORLESS (COLORLESS); CSF XANTHROCHROMIA NEG (NEG)
[2016-08-25 12:44] LABS: TOTAL PROTEIN, CSF 76.2 MG/DL (15-45)
[2016-08-25 13:27] LABS: CSF BASO 0 % (NO REF RANGE); CSF EOS 0 % (0-1); CSF LYMPH (NOT ORD) 57 % (28-96); CSF MONO 43 % (16-56); CSF RBC (NOT ORD) 0 MM3 (NO REFERENCE); CSF SEGS (NOT ORD) 0 % (0-7); CSF WBC (NOT ORD) < 1 /uL (0-10)
[2016-08-26 07:14] LABS: BUN (BLOOD UREA NITROGEN) 6 MG/DL (6-23); CALCIUM, SERUM 8.9 MG/DL (8.5-10.4); CHLORIDE, SERUM 96 MMOL/L (96-112); CREATININE 0.69 MG/DL (0.70-1.30); GFR AFRICAN AMERICAN 105 ML/MIN (>=60); GFR NON AFRICAN AMERICAN 90 ML/MIN (>=60); POTASSIUM, SERUM 4.5 MMOL/L (3.5-5.3); SODIUM, SERUM 128 MMOL/L (135-148)
[2016-08-26 07:16] LABS: CO2 (CARBON DIOXIDE) 24 MMOL/L (24-34); GLUCOSE, SERUM 136 MG/DL (60-99)
[2016-08-27 07:23] LABS: BUN (BLOOD UREA NITROGEN) 7 MG/DL (6-23); CALCIUM, SERUM 8.5 MG/DL (8.5-10.4); CHLORIDE, SERUM 97 MMOL/L (96-112); CO2 (CARBON DIOXIDE) 25 MMOL/L (24-34); GFR AFRICAN AMERICAN 111 ML/MIN (>=60); GFR NON AFRICAN AMERICAN 96 ML/MIN (>=60); GLUCOSE, SERUM 130 MG/DL (60-99); POTASSIUM, SERUM 4.1 MMOL/L (3.5-5.3); SODIUM, SERUM 130 MMOL/L (135-148)
[2016-08-28 04:02] LABS: BUN (BLOOD UREA NITROGEN) 11 MG/DL (6-23); CALCIUM, SERUM 8.4 MG/DL (8.5-10.4); CHLORIDE, SERUM 95 MMOL/L (96-112); CO2 (CARBON DIOXIDE) 25 MMOL/L (24-34); CREATININE 0.76 MG/DL (0.70-1.30); GFR AFRICAN AMERICAN 101 ML/MIN (>=60); GFR NON AFRICAN AMERICAN 87 ML/MIN (>=60); GLUCOSE, SERUM 145 MG/DL (60-99); POTASSIUM, SERUM 4.4 MMOL/L (3.5-5.3); SODIUM, SERUM 122 MMOL/L (135-148)
[2016-08-28 10:23] LABS: BUN (BLOOD UREA NITROGEN) 13 MG/DL (6-23); CALCIUM, SERUM 8.6 MG/DL (8.5-10.4); CHLORIDE, SERUM 90 MMOL/L (96-112); CO2 (CARBON DIOXIDE) 28 MMOL/L (24-34); CREATININE 0.94 MG/DL (0.70-1.30); GFR AFRICAN AMERICAN 89 ML/MIN (>=60); GFR NON AFRICAN AMERICAN 77 ML/MIN (>=60); GLUCOSE, SERUM 173 MG/DL (60-99); POTASSIUM, SERUM 4.2 MMOL/L (3.5-5.3); SODIUM, SERUM 126 MMOL/L (135-148)
[2016-08-28 13:27] LABS: ALBUMIN 2.9 G/DL (3.5-5.0); BUN (BLOOD UREA NITROGEN) 13 MG/DL (6-23); CALCIUM, SERUM 8.8 MG/DL (8.5-10.4); CHLORIDE, SERUM 92 MMOL/L (96-112); CO2 (CARBON DIOXIDE) 30 MMOL/L (24-34); CREATININE 0.93 MG/DL (0.70-1.30); GFR AFRICAN AMERICAN 90 ML/MIN (>=60); GFR NON AFRICAN AMERICAN 78 ML/MIN (>=60); GLUCOSE, SERUM 106 MG/DL (60-99); PHOSPHORUS, SERUM 3.7 MG/DL (2.5-4.5); POTASSIUM, SERUM 4.1 MMOL/L (3.5-5.3); SODIUM, SERUM 125 MMOL/L (135-148)
[2016-08-29 05:37] LABS: BASOPHILS 0.6 %; BASOPHILS ABSOLUTE 0.03 10/3/uL (0.0-0.16); EOSINOPHILS 6.1 %; EOSINOPHILS ABSOLUTE 0.31 10/3/uL (0.0-0.53); HEMATOCRIT 36.8 % (40.0-51.0); IMMATURE GRANULOCYTES 0.4 %; IMMATURE GRANULOCYTES ABSOLUTE 0.02 10/3/uL (0.0-0.11); LYMPHOCYTES 24.1 %; LYMPHOCYTES ABSOLUTE 1.22 10/3/uL (0.67-4.30); MEAN CORPUS HGB CONC 35.3 g/dL (32.0-36.0); MEAN CORPUSCULAR HEMOGLOB 30.3 pg (26.0-34.0); MEAN CORPUSCULAR VOLUME 85.8 fL (80-100); MONOCYTES 18.5 %; MONOCYTES ABSOLUTE 0.94 10/3/uL (0.21-1.20); NEUTROPHILS 50.3 %; NEUTROPHILS ABSOLUTE 2.55 10/3/uL (2.02-8.40); PLATELET COUNT 223 10/3/uL (150-400); RBC DISTRIBUTION WIDTH 12.9 % (12.0-16.0); RED CELL COUNT 4.29 10/6/uL (4.7-6.1)
[2016-08-29 05:39] LABS: A/G RATIO 0.5 (0.7-1.9); ALBUMIN 2.6 G/DL (3.5-5.0); ALKALINE PHOSPHATASE 63 U/L (45-117); BUN (BLOOD UREA NITROGEN) 14 MG/DL (6-23); CALCIUM, SERUM 8.3 MG/DL (8.5-10.4); CHLORIDE, SERUM 92 MMOL/L (96-112); CO2 (CARBON DIOXIDE) 26 MMOL/L (24-34); GFR AFRICAN AMERICAN 104 ML/MIN (>=60); GFR NON AFRICAN AMERICAN 90 ML/MIN (>=60); GLOBULIN 5.7 G/DL (2.5-4.1); GLUCOSE, SERUM 127 MG/DL (60-99); POTASSIUM, SERUM 4.3 MMOL/L (3.5-5.3); SGOT(AST) 12 U/L (5-40); SGPT(ALT) 15 U/L (5-65); SODIUM, SERUM 124 MMOL/L (135-148); TOTAL BILIRUBIN 0.5 MG/DL (0-1.2); TOTAL PROTEIN 8.3 G/DL (6.0-8.5)
[2016-08-29 05:41] LABS: MANUAL DIFF NO %; WHITE BLOOD CELLS 5.1 10/3/uL (4.5-10.5)
[2016-08-29 17:55] LABS: HSV DNA TYPE 1 Not Detected (NOTDET); HSV DNA TYPE 2 Not Detected (NOTDET)
[2016-08-30 05:53] LABS: HEMATOCRIT 37.7 % (40.0-51.0); HEMOGLOBIN 13.3 g/dL (13.6-17.8); MEAN CORPUS HGB CONC 35.3 g/dL (32.0-36.0); MEAN CORPUSCULAR HEMOGLOB 30.4 pg (26.0-34.0); MEAN CORPUSCULAR VOLUME 86.3 fL (80-100); MEAN PLATELET VOLUME 9.8 fL (9.2-13.0); PLATELET COUNT 256 10/3/uL (150-400); RED CELL COUNT 4.37 10/6/uL (4.7-6.1); WHITE BLOOD CELLS 5.2 10/3/uL (4.5-10.5)
[2016-08-30 05:54] LABS: MANUAL DIFF YES %
[2016-08-30 06:13] LABS: BUN (BLOOD UREA NITROGEN) 18 MG/DL (6-23); CALCIUM, SERUM 9.1 MG/DL (8.5-10.4); CHLORIDE, SERUM 100 MMOL/L (96-112); CO2 (CARBON DIOXIDE) 27 MMOL/L (24-34); CREATININE 0.87 MG/DL (0.70-1.30); FREE T4 1.36 NG/DL (0.76-1.46); GFR AFRICAN AMERICAN 95 ML/MIN (>=60); GFR NON AFRICAN AMERICAN 82 ML/MIN (>=60); GLUCOSE, SERUM 147 MG/DL (60-99); POTASSIUM, SERUM 4.6 MMOL/L (3.5-5.3); SODIUM, SERUM 130 MMOL/L (135-148)
[2016-08-30 06:23] LABS: BAND NEUTROPHILS 3 %; BASOPHILS 2 %; EOSINOPHILS 6 %; EOSINOPHILS ABSOLUTE (CALC) 0.31 10/3/uL (0.0-0.53); LYMPHOCYTES 16 %; LYMPHOCYTES ABSOLUTE (CALC) 0.83 10/3/uL (0.67-4.30); MONOCYTES 17 %; MONOCYTES ABSOLUTE (CALC) 0.88 10/3/uL (0.21-1.20); NEUTROPHILS ABSOLUTE (CALC) 3.07 10/3/uL (2.02-8.40); PLATELET ESTIMATE ADQ (ADEQUATE); RBC MORPHOLOGY NORM (NORMAL); SEGMENTED NEUTROPHIL (0) 56 %; TOTAL NUCLEATED CELLS 100
[2016-08-31 23:11] LABS: ACETYLCHOLINE REC BINDING AB <0.30 nmol/L (<0.31); ACETYLCHOLINE RECEPT BLOCK AB <15 % (<15); ACETYLCHOLINE RECEPTOR MOD AB <1 % (<32); STRIATED MUSCLE ANTIBODY Negative (NEG); STRIATED MUSCLE ANTIBODY TITER ND
== END 2016-08-30 19:19 | DRG 95 ==
LOC: ER 20:43 → 5SO 08-24 00:47 → CCU 08-27 13:01 → IMCU 08-28 18:40 → 4EA 08-30 13:50
PROVIDERS: Anesthesiology; Emergency Medicine; Hospitalist; Internal Medicine; Internal Medicine Pulmonary Disease; Nurse Practitioner; Psychiatry & Neurology Neurology
PROC: 009U3ZX Drainage of Spinal Canal, Percutaneous Approach, Diagnostic (ICD-10-PCS; principal; 2016-08-25)
DX: G61.0 Guillain-Barre syndrome (principal); E87.1 Hypo-osmolality and hyponatremia; E11.65 Type 2 diabetes mellitus with hyperglycemia; E53.8 Deficiency of other specified B group vitamins; E03.9 Hypothyroidism, unspecified; G47.33 Obstructive sleep apnea (adult) (pediatric); N40.0 Benign prostatic hyperplasia without lower urinary tract symptoms; Z96.653 Presence of artificial knee joint, bilateral; Z98.890 Other specified postprocedural states; Z90.49 Acquired absence of other specified parts of digestive tract; Z86.73 Personal history of transient ischemic attack (TIA), and cerebral infarction without residual deficits
CPT/HCPCS: 62270; 70450; 71010; 77003; 80048; 80053; 80069; 81001; 82140; 82550; 82607; 82746; 82945; 82962; 83036; 83519; 83519-59; 83735; 83874; 83930; 83935; 84100; 84157; 84295; 84439; 84443; 84481; 85025; 86255; 87070; 87205; 87327; 87529; 87529-59; 87641; 89051; 93005; 96374; 97110-GO; 97110-GP; 97162-GP; 97164-GP; 97166-GO; 97530-GP; 97535-GO; 99291; A9270-GY; G8987-CK-GO; G8988-CJ-GO; J1568; J3411; J3475